=== PATIENT | female | born 1975 | race Caucasian/White ===

== ENCOUNTER 2019-12-28 06:50 | Day surgery (SDC) | payer SELFPAY ==
[~2019-12-28 06:50] MED LIST: Lactated Ringers 1,000 ML IV SCH; Lidocaine 1% 4 ML ONE; Lidocaine 1%/Sod Bicarbonate in NS 8.4% 1 ML Syringe IDERM PRN; Midazolam 1 MG/ML 2 ML SDV ONE; Propofol 200 MG/20 ML SDV ONE; Sodium Chloride 0.9% 10 ML Syringe FLUSH PRN; fentaNYL 100 MCG/2 ML SDV ONE
--- NOTE | 2019-12-28 07:02 | PCM.PREANE ---
Preanesthetic Assessment - Procedure Proposed Procedure: sucrtion D and C - Anesthesia/Transfusion/Family Hx Anesthesia History: Prior Anesthesia Without Reaction Family History of Anesthesia Reaction: No Transfusion History: Prior Transfusion Without Reaction - Review of Systems General: No Symptoms Pulmonary: No Symptoms Cardiovascular: No Symptoms Gastrointestinal: No Symptoms Neurological: No Symptoms Other: Reports: None - Physical Assessment NPO Status Date: 12/27/19 NPO Status Time: 22:30 Vital Signs: 97.8 114/78 16 71 96% Height: 5 ft 2 in Weight: 74.661 kg ASA Class: 2 Mental Status: Alert & Oriented x3 Airway Class: Mallampati = 1 Dentition: Reports: Normal Dentition Thyro-Mental Finger Breadths: 3 Mouth Opening Finger Breadths: 3 ROM/Head Extension: Full Lungs: Clear to Auscultation, Normal Respiratory Effort Cardiovascular: Regular Rate, Regular Rhythm, No Murmurs - Allergies Allergies/Adverse Reactions: Allergies Allergy/AdvReac Type Severity Reaction Status Date / Time Penicillins Allergy Hives Verified 04/25/18 20:52 metoclopramide HCl AdvReac Mild Anxiety Verified 04/25/18 20:52 [From Reglan] - Blood Blood Available: No - Acknowledgements Anesthesia Type Planned: General Anesthesia, MAC Pt an Appropriate Candidate for the Planned Anesthesia: Yes Alternatives and Risks of Anesthesia Discussed w Pt/Guardian: Yes Pt/Guardian Understands and Agrees with Anesthesia Plan: Yes PreAnesthesia Questionnaire HEENT History: Reports: None Cardiovascular History: Reports: None Respiratory History: Reports: None Gastrointestinal History: Reports: None 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: Musculoskeletal History: Reports: None Endocrine/Metabolic History: Reports: None Oncologic (Cancer) History: Reports: None Dermatologic History: Reports: Eczema - SUBSTANCE USE Smoking Status *Q: Never Smoker Tobacco Use Within Last Twelve Months: No Second Hand Smoke Exposure: No Days Per Week of Alcohol Use: 1 Recreational Drug Use History: No - HOME MEDS Home Medications: Home Meds Acetaminophen [Tylenol Extra Strength] 1,000 mg PO Q6HR PRN 10/13/13 [History] Cholecalciferol (Vitamin D3) [Vitamin D3] 2,000 units PO DAILY 10/13/13 [History] Ibuprofen [Motrin Ib] 200 mg PO Q6HR PRN 10/13/13 [History] Pnv with Ca,No.71/Iron/Fa [ Vitamin Tablet] 1 tab PO DAILY 10/13/13 [History] - CURRENT (IN HOUSE) MEDS Current Meds: Current Medications Lactated Ringer's (Ringers, Lactated) 1,000 mls @ 125 mls/hr IV ASDIRECTED MNOO Lidocaine/Sodium Bicarbonate (Buffered Lidocaine 1% In Ns 8.4%) 0.25 ml IDERM ONETIME PRN PRN Reason: Prior to IV Start Sodium Chloride (Saline Flush) 10 ml FLUSH ASDIRECTED PRN PRN Reason: Keep Vein Open Discontinued Medications Fentanyl (Sublimaze) Confirm Administered Dose 100 mcg .ROUTE .STK-MED ONE Stop: 12/28/19 06:49 Lidocaine HCl (Xylocaine-Mpf 1%) Confirm Administered Dose 4 mls @ as directed .ROUTE .STK-MED ONE Stop: 12/28/19 06:49 Midazolam HCl (Versed 1 Mg/Ml) Confirm Administered Dose 2 mg .ROUTE .STK-MED ONE Stop: 12/28/19 06:49 Propofol (Diprivan 20 Ml) Confirm Administered Dose 200 mg .ROUTE .STK-MED ONE Stop: 12/28/19 06:49
[2019-12-28] MEDS ORDERED: Ketamine 500 mg/10 ML MDV ONE (07:35)
[2019-12-28] MEDS ORDERED: Ketorolac 30 MG/ML SDV ONE (07:58)
--- NOTE | 2019-12-28 08:07 | PCM48HPAN ---
Post Anesthesia Note - EVALUATION WITHIN 48HRS OF ANESTHETIC Vital Signs in Normal Range: Yes Patient Participated in Evaluation: Yes Respiratory Function Stable: Yes Airway Patent: Yes Cardiovascular Function Stable: Yes Hydration Status Stable: Yes Pain Control Satisfactory: Yes Nausea and Vomiting Control Satisfactory: Yes Mental Status Recovered: Yes Vital Signs: Last Vital Signs Temp 97.8 F 12/28/19 06:50 Pulse 71 12/28/19 06:50 Resp 16 12/28/19 06:50 BP 114/78 12/28/19 06:50 Pulse Ox 96 12/28/19 06:50 0801 114/72 66 16 97.6 94%
[2019-12-28] MEDS ORDERED: Ondansetron 4 MG/2 ML SDV IVPUSH PRN (08:29)
[2019-12-28] MEDS ORDERED: Ibuprofen 600 MG Tab PO PRN (08:29)
--- NOTE | 2019-12-28 08:33 | PCM.OPNOTE ---
- General Post-Op/Procedure Note Date of Surgery/Procedure: 12/28/19 Operative Procedure(s): dilation suction curettage Findings: Uterus sounded to 11-1/2 cm. endometrial curettings consistent with products of conception. Pre Op Diagnosis: 7 week nonviable Post-Op Diagnosis: Same Anesthesia Technique: MAC Primary Surgeon: Neo Stewart Secondary Surgeon: Danni Anaya Pathology: endometrial curettings Fluid Replacement, Intraop: 600 EBL in mLs: 30 Complications: None Condition: Good Free Text/Narrative:: surgery duration: 5 minutes The patient was taken to the operating room and placed in a supine position operating table. After adequate MAC patient was placed in a dorsal lithotomy position. A weighted speculum was placed in the vagina. Cervix is found to be dilated to approximately 1 centimeters. Uterus was sounded to approximately 11.5 cm. It was found to be anterior and mid position. An 7 mm suction curette was then introduced in routine fashion the endometrial cavity was evacuated. Mo derate amount tissue was obtained. Findings consistent with products of conception. A medium size sharp curet was introduced and very careful fashion the endometrial cavity was curetted. It was be clear of any further tissue. The suction curet was then reintroduced and small and blood was removed. No further tissue was removed. This point the D&C was discontinued. The single-toothed tenaculum used to stabilize the anterior lip the cervix was removed. Blood was removed from the vagina with a stick sponge and the weighted speculum was removed from the vagina. The patient was discharged from the operating room in good condition.
== END 2019-12-28 09:30 | disposition home or self-care (01) ==
LOC: JD.SDS 06:50
PROVIDERS: ATTEND Obstetrics & Gynecology
DX: O02.89 Other abnormal products of conception (principal); Z88.0 Allergy status to penicillin; Z88.8 Allergy status to other drugs, medicaments and biological substances
CPT/HCPCS: 59812; J1885; J2001; J2250; J2704; J3010; J7120; 01965

== ENCOUNTER 2020-07-15 09:33 | Emergency (ER) | payer SELFPAY ==
--- NOTE | 2020-07-15 10:14 | EDM.PDOC ---
ED HPI GENERAL MEDICAL PROBLEM - General Chief Complaint: Lower Extremity Injury/Pain Stated Complaint: SENT BY WALK IN FOR ULTRASOUND Time Seen by Provider: 07/15/20 10:00 Source of Information: Reports: Patient, Family (spouse) History Limitations: Reports: No Limitations - History of Present Illness INITIAL COMMENTS - FREE TEXT/NARRATIVE: 45-year-old female presents to the ED with acute onset of left posterior calf pain. Pain started suddenly after traveling back home from [place] yesterday. After getting out of the vehicle she started to appreciate sharp stabbing tea ring-like pain in her medial left posterior calf. Pain is worse this morning making it difficult to walk. She is walking on her heel more or less. She was seen at the walk-in clinic and they referred her to the ER for potential ultrasound to rule out DVT. She has no past history of DVT and no significant injury or being laid up as of recent. She reports little discomfort as she is not weightbearing. Onset: Sudden Onset Date: 07/14/20 Onset Time: 17:30 Duration: Hour(s):, Getting Worse Location: Reports: Lower Extremity, Left (Left medial) Quality: Reports: Ache ( mid calf pain), Throbbing Severity: Moderate Improves with: Reports: Rest Worsens with: Reports: Other Context: Reports: Other (Continuous occurrence while walking). Denies: Activity, Exercise, Lifting (Bearing and walking), Sick Contact, Trauma Associated Symptoms: Reports: No Other Symptoms Treatments INSET CUTTER: Reports: NSAIDS Left Lower Leg Pain Score (Numeric/FACES): 6 - Related Data Allergies Allergy/AdvReac Type Severity Reaction Status Date / Time amoxicillin Allergy Severe Rash Verified 07/15/20 09:44 Penicillins Allergy Severe Hives Verified 07/15/20 09:44 metoclopramide HCl AdvReac Mild Anxiety Verified 07/15/20 09:44 [From Reglan] Home Meds: Home Meds Citalopram [Citalopram HBr] 10 mg PO DAILY 12/28/19 [History] Past Medical History HEENT History: Reports: None Cardiovascular History: Reports: None Respiratory History: Reports: None Gastrointestinal History: Reports: Irritable Bowel Syndrome 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: Musculoskeletal History: Reports: None Psychiatric History: Reports: Anxiety Endocrine/Metabolic History: Reports: Obesity/BMI 30+ Oncologic (Cancer) History: Reports: None Dermatologic History: Reports: Eczema - Past Surgical History Female Surgical History: Reports: Section Social & Family History - Tobacco Use Tobacco Use Status *Q: Never Tobacco User - Caffeine Use Caffeine Use: Reports: Coffee - Recreational Drug Use Recreational Drug Use: No - Living Situation & Occupation Living situation: Reports: Occupation: Employed Review of Systems - Review of Systems Review Of Systems: See Below Constitutional: Reports: No Symptoms Eyes: Reports: No Symptoms Ears: Reports: No Symptoms Nose: Reports: No Symptoms Mouth/Throat: Reports: No Symptoms Respiratory: Reports: No Symptoms Cardiovascular: Reports: No Symptoms GI/Abdominal: Reports: No Symptoms Genitourinary: Reports: No Symptoms Musculoskeletal: Reports: Other (Presents to the ED for evaluation of cute onset of medial calf pain left leg) Skin: Reports: No Symptoms Neurological: Reports: No Symptoms Psychiatric: Reports: Depression, Anxiety (Is on citalopram once daily) ED EXAM, GENERAL - Physical Exam Exam: See Below Exam Limited By: No Limitations General Appearance: Alert, WD/WN, No Apparent Distress, Other (Temperature is 36.4 with a heart rate of 75 and sinus respiratory to 16 BP 118/81 O2 sats 97% room air.) Eye Exam: Bilateral Eye: Normal Inspection, PERRL (No scleral icterus or blepharal pallor.) Peripheral Pulses: 3+: Posterior Tibial (L), Posterior Tibial (R), Dorsalis Pedis (L), Dorsalis Pedis (R) Extremities: Other (Examination was limited to both lower extremities. The right leg contains no soreness or pain or swelling. Left leg shows no swelling with no edema. No palpable swelling in the popliteal fossa. Pain is well localized to the upper belly of the medial gastrocnemius muscle with localized swelling and pain. There is no pain in the midline of the calf or left lateral gastrocnemius muscle. Pain is worsened by dorsiflexion of the foot. Patient reassured this is a calf muscle strain.) Neurological: Alert, Oriented, CN II-XII Intact, Normal Cognition, Normal Gait Course - Vital Signs Last Recorded V/S: Last Vital Signs Temp 36.4 C 07/15/20 09:42 Pulse 75 07/15/20 09:42 Resp 16 07/15/20 09:42 BP 118/81 07/15/20 09:42 Pulse Ox 97 07/15/20 09:42 - Orders/Labs/Meds Orders: Active Orders 24 hr Category Date Time Status Durable Medical Equipment for Discharge [DME for Oth 07/15/20 10:10 Ordered Discharge] [COMM] Stat - Radiology Interpretation Free Text/Narrative:: 45-year-old female presents to the ED for evaluation of left calf pain that started abruptly after getting out of the car and walking after prolonged sitting yesterday. She was in [place] and this occurred after she got of the car walking in the driveway. Sudden onset of sharp stabbing pain well localized to the medial aspect of her left calf. She was seen at the walk-in clinic this morning due to increased pain overnight and they referred her to the ED to rule out a DVT. However on my assessment she has well localized pain to the medial belly of the gastrocnemius muscle compatible with a calf muscle tear. There is no pain in the midline or in the lateral aspect of the calf. There is no swelling or edema to suggest DVT. Patient will be placed on nonweightbearing crutch walking ice pack to the area 1/2-hour out of every 4 hours today and then may apply heat in a similar fashion over the next few days. Aleve 2 tablets every 8 hours this would relieve pain and inflammation. Advised that this will take between 10 and 14 days to settle down. Follow-up is advised if the leg becomes more swollen or painful in that interim timeframe. Departure - Departure Time of Disposition: 10:09 Disposition: Home, Self-Care 01 Condition: Fair Clinical Impression: Strain of left calf muscle - Discharge Information *PRESCRIPTION DRUG MONITORING PROGRAM REVIEWED*: Not Applicable *COPY OF PRESCRIPTION DRUG MONITORING REPORT IN PATIENT FINN: Not Applicable Instructions: Muscle Strain, [id number], Medial Head Gastrocnemius Tear Referrals: Silvia Cunha TELECOMMUNICATION SYSTEMS DESIGNER [Primary Care Provider] - Forms: ED Department Discharge Additional Instructions: Evaluation in the emergency room today in regards to acute onset of pain and limited ability to weight-bear on the left leg since yesterday afternoon about 1730 hrs. Examination reveals well localized tenderness to the medial belly of the right gastroc anemias muscle in your posterior calf. No pain in the lateral aspect of the gastrocnemius muscle or lateral calf. Note swelling or edema to suggest blood clot in the leg. I can feel hematoma formation within the medial gastrocnemius muscle. This is simply more of a [id number] type injury. Muscle strain with bleeding within the muscle has occurred with causing pain and limited ability to walk. Treatment today is ice pack to the area for 1/2-hour out of every 4 hours. May start using heat in the similar fashion tomorrow to the area. Suggest nonweightbearing using crutches for the next 3 to 6 days. Aleve 2 tablets every 8 hours as needed for pain relief.. Expect anywhere between 10 and 14 days for this injury to heal. This means being able to go up and down a flight of stairs with no discomfort. I would avoid running or jogging for at least 6 weeks until the muscle is completely healed. If the leg swells or becomes increasingly painful over the next 3 to 4 days then reevaluation would be indicated. Sepsis Event Note (ED) - Evaluation Sepsis Screening Result: No Definite Risk - Focused Exam Vital Signs: Vital Signs Temp Pulse Resp BP Pulse Ox 07/15/20 09:42 36.4 C 75 16 118/81 97 - My Orders Last 24 Hours: My Active Orders 07/15/20 10:10 Durable Medical Equipment for Discharge [DME for Discharge] [COMM] Stat - Assessment/Plan Last 24 Hours: My Active Orders 07/15/20 10:10 Durable Medical Equipment for Discharge [DME for Discharge] [COMM] Stat
== END 2020-07-15 10:30 | disposition home or self-care (01) ==
LOC: JD.ED 09:33
DX: S86.912A Strain of unspecified muscle(s) and tendon(s) at lower leg level, left leg, initial encounter (principal); E66.9 Obesity, unspecified; Z68.30 Body mass index [BMI] 30.0-30.9, adult; Z88.0 Allergy status to penicillin; Z88.8 Allergy status to other drugs, medicaments and biological substances; X58.XXXA Exposure to other specified factors, initial encounter
CPT/HCPCS: 99282; 99283